=== PATIENT | male | born 1985 | race Caucasian/White ===

== ENCOUNTER → 2019-10-31 | Outpatient (CLI) | payer OTHER ==
[~2019-10-31] MED LIST: IBUP-1027 PO; LIDO700A21 TP; METH-38 PO
--- NOTE | 2019-11-01 01:43 | PAIN ---
DATE OF SERVICE: 10/31/2019 INITIAL CONSULTATION FOR PAIN CLINIC CHIEF COMPLAINT: Low back and left lower extremity pain. HISTORY OF PRESENT ILLNESS: This is a 34-year-old male who presents with history of pain in the low back and left lower extremity since about 07/2018. He was doing some weightlifting routines, noticed pain in his back, was becoming more persistent even without the weightlifting, especially with sitting in the car, riding for a long period of time. He has recently been on a vacation where he was in a car for multiple hours and this exacerbated the pain significantly in the low back, especially on the left side. The patient reports it is shooting pain, it is intermittent in intensity, worse with activity, walking, standing, changing positions, sitting for prolonged periods, riding the car, radiating down the left leg, posterior lateral aspect of the left thigh with a burning sensation as well. The patient reports he has had physical therapy, which was helpful, but he is still doing the exercises, strengthening and stretching from it as well as he has been taking ibuprofen, using lidocaine patches on his back as well as methocarbamol, all of which have helped, but only by about 20-30%. The patient rates his disability rating from 0-10, 10 being the worst, is 1 with family home responsibilities, 4 with recreation, 2 with social activity, 3 with occupation, 0 with sexual behavior, self-care and life support activities. The patient did have an MRI scan of the lumbar spine showing L4-L5 showing mild generalized loss of T2 signal with a minimal disk bulge, asymmetric to the right, mild left and moderate right neural foraminal narrowing seen, L5-S1 shows broad central disk protrusion with disk material contacting the bilateral exiting S1 nerve roots in the spinal canal. The patient reports it awakens him from sleep occasionally, but not most nights, does not affect his bowel or bladder control or affects his ability to walk. He is not using any assistive devices to ambulate. PAST MEDICAL HISTORY: Significant for only previous surgeries; right shoulder surgery, tonsillectomy, vasectomy and bilateral eye surgery. CURRENT MEDICATIONS: Include ibuprofen, methocarbamol, lidocaine patches. ALLERGIES: The patient has no known drug allergies. FAMILY HISTORY: Significant for breast cancers. SOCIAL HISTORY: The patient does not smoke, drinks alcohol. He drinks per night. He is , lives with his spouse and has 4 children living with him and lives locally in [place], [place]. The patient has active duty. REVIEW OF SYSTEMS: The patient's review of systems is positive for those items mentioned in history of present illness. All systems reviewed and otherwise negative. It is complete, full and well documented on the patient's chart. PHYSICAL EXAMINATION: VITAL SIGNS: The patient's blood pressure 145/79, pulse 72, respirations 16, temperature 98.2 degrees Fahrenheit, height is 72 inches, weight is 221 pounds. GENERAL: The patient is awake, alert, oriented, appropriate, very pleasant demeanor. HEENT: Shows normocephalic, atraumatic. Extraocular movements are intact and symmetrical. Oral cavity: Mucous membranes moist and pink. Dentition is intact. NECK: Shows anterior throat supple without palpable lymphadenopathy noted. Swallow reflex symmetrical. CHEST: Shows normal on inspection. Breath sounds are clear to auscultation bilaterally. HEART: Shows S1, S2 clear. No murmurs auscultated. ABDOMEN: Soft, nontender, nondistended. No palpable organomegaly is noted. No rebound or guarding demonstrated. BACK: Shows spine grossly in the midline, normal-appearing cervical lordotic curvature, thoracic kyphotic curvature and lumbar lordotic curvature. Cervical paraspinous muscle shows symmetrical on inspection, with palpation shows some mild tenderness, but only diffusely in the low cervical distribution into the superior medial trapezius, but without radiation. The patient shows full rotational motion of cervical spine, greater than 45 degrees right and left as well as full extension, full forward flexion without significant pain reported. Lumbar spine shows symmetrical on inspection, with palpation shows some mild tenderness in the low lumbar distribution, more on the left than the right, but symmetrical without evidence of atrophy, hypertrophy, no trigger points, no radiation of pain, no tenderness over the spinous processes, sacrum or sacroiliac regions. The patient has good rotational motion of lumbar spine, greater than 10 degrees, right and left lateral as well as full extension and full forward flexion without significant pain reported. EXTREMITIES: The patient's lower extremities show deep tendon reflexes 2+ in the patellar, 1+ tendo-calcaneus tendons. Motor exam is strong with 5/5 dorsiflexion, extension, quadriceps and hamstring flexion and symmetrical. Peripheral pulses are 1+ posterior tibia. No peripheral edema is noted. Lower extremities are warm and dry to touch, equal in color and appearance. Straight leg raise noted to be negative for reproduction of radicular symptoms bilaterally as is Gaenslen's and Fernandez's maneuvers bilaterally. The patient is able to stand, stand on his toes without difficulty or loss of balance, walks with a normal appearing gait, does not appear to favor his right or left lower extremity with walking, not using any assistive devices such as canes, etc. The patient's skin shows warm and dry, good turgor. No edema. No sores, rashes or bruising throughout. IMPRESSION: 1. This is a 34-year-old male with approximate 14-month history of pain in low back, left lower extremity in a radicular fashion. 2. MRI scan of lumbar spine as noted. PLAN: Options were discussed with the patient including conservative medical managements, continued physical therapies versus interventional techniques. We discussed a lumbar epidural steroid injection using description as well as anatomical models to describe the procedure. Risks were then discussed as well. The patient will wait for preauthorization with his insurance provider and will return for lumbar epidural steroid injection at that time. The patient has clinical L5-S1 radiculopathy greater on the left and MRI scan as noted. We will plan on translaminar L5-S1 lumbar epidural steroid injection on return. In the meantime, the patient will continue with physical therapy, also add traction through his physical therapy regimen at [facility] and return as scheduled. MALENA HUNTER MD DR: BERNICE/luz maria JOB#: [id number] / [id number]
== END | disposition home or self-care (01) ==
LOC: PNCL 09:32
PROVIDERS: ATTEND Anesthesiology
DX: M51.27 Other intervertebral disc displacement, lumbosacral region (principal); M48.061 Spinal stenosis, lumbar region without neurogenic claudication; Z90.89 Acquired absence of other organs
CPT/HCPCS: G0463

== ENCOUNTER → 2019-11-20 | Outpatient (CLI) | payer OTHER ==
[~2019-11-20] MED LIST changes: +IOHEXOL 180 MG/ML 10 ML VIAL. ONE; +methylPREDNISolone ACETATE 40 MG/ML VIAL. ONE; +methylPREDNISolone ACETATE 80 MG/ML VIAL. ONE
--- NOTE | 2019-11-20 23:05 | PAIN ---
DATE OF SERVICE: 11/20/2019 PROGRESS NOTE FOR PAIN CLINIC DIAGNOSIS: Lumbar radiculopathy with lumbar degenerative disk disease. HISTORY OF PRESENT ILLNESS: The patient is a 34-year-old male who returns for followup status post initial evaluation and preauthorization for lumbar epidural steroid injection. He has had pain now and would like to proceed. The patient reports still significant pain in the low back, left lower extremity as it was previously, rated a 4 on a scale of 10 at its worst in the last week, 2 on average, 0 at its least and is 2 today. The patient reports no new motor or sensory deficits. Describes the pain as tight and dull in the low back, alternating and aching and shooting in the left leg, on and off in intensity, again worse with activity, better with sitting or lying down. The patient reports it does not awaken him from sleep most night. PHYSICAL EXAMINATION: VITAL SIGNS: The patient's blood pressure is 128/79, pulse 76, respirations 16, temperature is 98.2 degrees Fahrenheit, height is 72 inches, weight is 221 pounds. GENERAL: The patient is awake, alert, oriented, appropriate, very pleasant demeanor. HEENT: Shows normocephalic, atraumatic. Extraocular movements are intact and symmetrical. Oral cavity shows mucous membranes moist and pink. Dentition is intact. NECK: Shows anterior throat supple without palpable lymphadenopathy noted. Swallow reflex symmetrical. CHEST: Shows normal on inspection. Breath sounds clear to auscultation bilaterally. HEART: Shows S1, S2 clear. ABDOMEN: Soft, nontender, nondistended. BACK: Shows spine grossly in the midline. Normal appearing thoracic kyphosis and lumbar lordotic curvature. Lumbar paraspinous muscle shows symmetrical on inspection, with palpation shows some mild tenderness diffusely only in the low lumbar distribution without asymmetry. The patient has good rotational motion of lumbar spine, both laterally as well as extension and flexion without significant difficulty. EXTREMITIES: Lower extremities show deep tendon reflexes at 2+ in the patellar, 1+ tendo-calcaneus tendons. Motor exam is strong with 5/5 dorsiflexion, extension, equal. Peripheral pulses are 1+. No peripheral edema bilaterally. Options were discussed with the patient. The patient's old chart was reviewed as his current medication regimen updated. Current review of systems updated today as well. We will proceed with a first in this series of lumbar epidural steroid injection today with fluoroscopic guidance. Risks were again discussed including, but not limited to bleeding, infection, possibility of epidural hematoma, subsequent neurological compromise, dural puncture, headaches, spinal cord and/or nerve damage, side effects of steroid medication and poor results regarding pain control. The patient understands and wished to proceed. The patient will return to clinic in approximately 2 weeks for followup. She was counseled on return appointment, activity level and side effects to be aware of. DIAGNOSIS: Lumbar radiculopathy with lumbar degenerative disk disease. PROCEDURE: Lumbar epidural steroid injection, translaminar approach at L5-S1 level using C-arm fluoroscopic guidance under sterile prep and drape using local anesthetic. MEDICATION INJECTED: A total of 120 mg Depo-Medrol plus 10 mL of preservative-free normal saline and 2 mL of contrast. CONDITION AT DISCHARGE: Stable. The patient tolerated procedure well, had no complications. MALENA HUNTER MD DR: BERNICE/luz maria JOB#: [id number] / [id number]
== END | disposition home or self-care (01) ==
LOC: PNCL 13:57
PROVIDERS: ATTEND Anesthesiology
DX: M51.16 Intervertebral disc disorders with radiculopathy, lumbar region (principal); Z98.890 Other specified postprocedural states
CPT/HCPCS: 62323; J1030; J1040; Q9965

== ENCOUNTER → 2019-12-15 | Outpatient (CLI) | payer OTHER ==
--- NOTE | 2019-12-15 09:24 | PAIN ---
DATE OF SERVICE: 12/15/2019 PROGRESS NOTE FOR PAIN CLINIC DIAGNOSES: Lumbar radiculopathy with lumbar degenerative disk disease. HISTORY OF PRESENT ILLNESS: The patient is a 34-year-old male who returns for followup status post lumbar epidural steroid injection x 1 that was 11/20/2019. The patient did very well with about 50% improvement overall. Pain in his left leg is now gone, still has pain in the low back. The patient reports it is a 3 on a scale of 10 at its worst over the past week, 2 on average, 0 at its least and is a 2 today. The patient reported it is aching and dull, but he is increasing his activity with greater ease and comfort, doing work activities, working out, exercising, walking greater distances, doing household activities with much greater ease and comfort, traveling with greater ease. The patient reports no new motor or sensory deficits, no new bowel or bladder incontinence. PHYSICAL EXAMINATION: VITAL SIGNS: The patient's blood pressure 130/56, pulse 63, respirations are 16, temperature 98.0 degrees Fahrenheit, height is 72 inches, weight is 218 pounds. GENERAL: The patient is awake, alert, oriented, appropriate, very pleasant demeanor. HEENT: Shows normocephalic, atraumatic. Extraocular movements are intact and symmetrical. Oral cavity: Mucous membranes moist and pink. Dentition is intact. NECK: Shows anterior throat supple without palpable lymphadenopathy noted. Swallow reflex symmetrical. CHEST: Shows normal on inspection. Breath sounds are clear bilaterally. HEART: Shows S1, S2 clear. No murmurs auscultated. ABDOMEN: Soft, nontender, nondistended. BACK: Shows spine grossly in the midline. Normal appearing thoracic kyphosis and lumbar lordotic curvature. Lumbar paraspinous muscle shows symmetrical on inspection, with palpation shows some very mild tenderness but only in the low lumbar distribution bilaterally inferior paraspinous muscles, but only diffusely without radiation. EXTREMITIES: The patient's lower extremities show deep tendon reflexes at 2+ in the patellar, 1+ tendo-calcaneus tendons. Motor exam is strong with 5/5 dorsiflexion, extension, quadriceps and hamstring flexion symmetrical. Peripheral pulses are 1+ posterior tibia. No peripheral edema bilaterally. Options were discussed with the patient. The patient's old chart was reviewed as his current medication regimen updated. Current review of systems updated today as well. We will proceed with a second in the series of lumbar epidural steroid injection today with fluoroscopic guidance. Risks were again discussed including, but not limited to bleeding, infection, possibility of epidural hematoma, subsequent neurological compromise, dural puncture, headaches, spinal cord and/or nerve damage, side effects of steroid medication and poor results regarding pain control. The patient understands and wished to proceed. The patient will return to clinic in approximately 2 weeks for followup, was counseled on return appointment, activity level and side effects to be aware of. DIAGNOSES: Lumbar radiculopathy with lumbar degenerative disk disease. PROCEDURE: Lumbar epidural steroid injection, translaminar approach at L5-S1 level using C-arm fluoroscopic guidance under sterile prep and drape using local anesthetic. MEDICATION INJECTED: A total of 120 mg Depo-Medrol plus 10 mL of preservative-free normal saline and 2 mL of contrast. CONDITION AT DISCHARGE: Stable. The patient tolerated the procedure well, had no complications. MALENA HUNTER MD DR: BERNICE/luz maria JOB#: [id number] / [id number]
== END | disposition home or self-care (01) ==
LOC: PNCL 08:30
PROVIDERS: ATTEND Anesthesiology
DX: M51.16 Intervertebral disc disorders with radiculopathy, lumbar region (principal); Z98.890 Other specified postprocedural states
CPT/HCPCS: 62323; J1030; J1040; Q9965

== ENCOUNTER → 2020-03-16 | Outpatient (CLI) | payer OTHER ==
--- NOTE | 2020-03-16 08:35 | PAIN ---
DATE OF SERVICE: 03/16/2020 PROGRESS NOTE FOR PAIN CLINIC DIAGNOSES: Lumbar radiculopathy with lumbar degenerative disk disease. HISTORY OF PRESENT ILLNESS: The patient is a 34-year-old male who returns for followup status post lumbar epidural steroid injections x 2, most recently 12/15/2019, patient did very well, near 100% improvement for about 2 months. The patient reports the pain returned over the past few weeks in the low back and bilateral lower extremities, more on the left than the right and across the back as well. The patient reports no new motor or sensory deficits, no new bowel or bladder incontinence. Reports the pain is aching pain now, some shooting in the left leg posteriorly, but mostly in the back. The patient reports it is a 4 on a scale of 10 at its worse over the past week, 3 on average, 0 at its least and is a 3 today. The patient reports no new motor or sensory deficits. Reports it does not awaken him from sleep at night, much better with lying down or sitting down, worse with walking, standing, changing positions. Initially, he was doing much better with walking, doing workout activities, household activities with greater ease and comfort and sleeping better at night. PHYSICAL EXAMINATION: VITAL SIGNS: The patient's blood pressure is 132/85, pulse 67, respirations 18, temperature 98.3 degrees Fahrenheit, height is 72 inches, weight is 216 pounds. GENERAL: The patient is awake, alert, oriented, appropriate, very pleasant demeanor. HEENT: Shows normocephalic, atraumatic. Extraocular movements are intact and symmetrical. Oral cavity: Mucous membranes moist and pink. Dentition is intact. NECK: Shows anterior throat supple without palpable lymphadenopathy noted. Swallow reflex symmetrical. CHEST: Shows normal on inspection. Breath sounds are clear bilaterally. HEART: Shows S1, S2 clear. No murmurs auscultated. ABDOMEN: Soft, nontender, nondistended. No palpable organomegaly is noted. No rebound or guarding demonstrated. BACK: Shows spine grossly in the midline. Normal appearing thoracic kyphosis and lumbar lordotic curvature. Lumbar paraspinous muscle shows symmetrical on inspection, with palpation shows some moderate tenderness diffusely in the low lumbar distribution only with palpation bilaterally, but only diffusely without radiation. The patient has good rotational motion of lumbar spine, both laterally as well as extension and flexion without significant tenderness or disability. The patient shows good extension, flexion as well. EXTREMITIES: Lower extremities show deep tendon reflexes 2+ in the patellar and tendo calcaneus tendons are 1+. Motor exam is strong with 5/5 dorsiflexion, extension, quadriceps and hamstring flexion symmetrical. Peripheral pulses are 1+ posterior tibia. No peripheral edema is noted bilaterally. Options were discussed with the patient. The patient's old chart was reviewed as his current medication regimen updated. Current review of systems updated today as well. We will proceed with a third in the series of lumbar epidural steroid injection today with fluoroscopic guidance. Risks were again discussed including, but not limited to bleeding, infection, possibility of epidural hematoma, subsequent neurological compromise, dural puncture, headaches, spinal cord and/or nerve damage, side effects of steroid medication and poor results regarding pain control. The patient understands and wished to proceed. The patient will return to clinic in approximately 2 weeks for followup. He was counseled on return appointment, activity level and side effects to be aware of. DIAGNOSES: Lumbar radiculopathy with lumbar degenerative disk disease. PROCEDURE: Lumbar epidural steroid injection, translaminar approach at L5-S1 level using C-arm fluoroscopic guidance under sterile prep and drape using local anesthetic. MEDICATION INJECTED: A total of 120 mg Depo-Medrol plus 10 mL preservative-free normal saline and 2 mL of contrast. CONDITION AT DISCHARGE: Stable. The patient tolerated the procedure well, had no complications. MALENA HUNTER MD DR: BERNICE/luz maria JOB#: [id number] / [id number]
== END ==
LOC: PNCL 07:32
PROVIDERS: ATTEND Anesthesiology
DX: M51.16 Intervertebral disc disorders with radiculopathy, lumbar region (principal)
CPT/HCPCS: 62323; J1030; J1040; Q9965